=== PATIENT | female | born 1960 | race Caucasian/White ===

== ENCOUNTER 2024-10-06 09:17 | Outpatient (AMB) | payer BC, SELFPAY ==
--- NOTE | 2024-10-06 09:38 | AM.OFFWIN_ITS ---
Intake Vital Signs 3 10/06/24 09:41 Height 5 ft 7 in Weight 219 lb BMI 34.3 BP 118/70 Blood Pressure Location Lt brachial Position Sitting Respiration 15 Pulse 68 Pulse Source Pulse Oximeter Temp 98.2 F Temp Source Oral Pulse Oximetry (%) 97 Oxygen Delivery Method Room Air Intake Visit Reasons: EP ? Poison eye on RT side of face and chest area Intake Note: Pt is here today ?poison catrachita Rt eye, face and chest area x3 days ago Allergies sulfa Adverse Reaction (Uncoded 10/06/24 09:45) rash Medication List - Last Reconciled 10/06/24 by Lilia Parks, [employer]- montelukast 10 mg PO DAILY HPI HPI Comments 2 History of Present Illness0 Details History of Present Illness - The patient is a 64-year-old female pr esenting with concern for poison catrachita exposure. - Contact occurred Tuesday or Tuesday, re sulting in itching and a rash. - The rash has worsened, appearing on he r face and L shoulder and chest, characterized by oozing. - She applied an bouq-yys-fyogile remedy for itching, with limited relief. - Patient reports a significant reaction not experienced since adolescence. Review of Systems - Dermatologic: Reports itching and oozi ng rash on face and shoulder. - No other systemic symptoms were discus sed. Physical Exam General: Well developed, well nourished, in no acute distress. Appears stated age. Discussion Notes I reviewed with the patient the diagnosis of contact dermatitis due to poison catrachita exposure. We discussed immediate management strategies, focusing on easing symptoms and reducing further exposure to the oil causing the reaction. I recommended the use of Tecnu products, including a body wash for use during showers, noting its benefits for removing oil. I advised on the benefits of Tecnu?s drying spray, which was noted to be more effective than calamine lotion, and confirmed this could be safely applied to the face. We also covered plans to initiate a tapering course of oral steroids, detailing the importance of administration with food to mitigate gastrointestinal side effects. I emphasized the necessity of adhering to a 10-day tapering plan to manage inflammation effectively. We also discussed supplementation with a topical steroid cream, emphasizing facial application to prevent involvement of the eyes. Apmf-iuj-zoixgva antihistamines such as Benadryl or Zyrtec were mentioned as adjunctive treatments to reduce itching. I stressed the importance of environmental modifications to prevent spreading, advising careful management of personal items and hygiene practices, and instructed on preventing spread through self-inoculation. We discussed follow-up care if symptoms did not improve or worsened. Assessment and Plan 1. Contact Dermatitis due to Poison Catrachita Exposure - Use Tecnu products, including body was h and drying spray, safe for facial use. - Start a 10-day tapering steroid course , ensure to take with food. - Apply topical steroid cream on affecte d areas, especially on the face. - Consider Benadryl or Zyrtec for itchin g. - Advise on hygiene to prevent spread an d exposure. - Follow-up if no improvement is noted. Patient Instructions - Use Tecnu body wash and spray as direc rayna, including on the face. - Take steroid tablets with food, starti ng today, with 5 tablets each morning. - Apply topical steroid cream sparingly on the rash, especially on the face but avoiding the eyes. - You may take Benadryl or Zyrtec for it iraj. - Do not share towels, and wash bedding regularly to prevent spreading. - Follow these instructions and return i f symptoms worsen or do not improve. Consent Patient was informed and verbally consented to the use of an ambient scribe for clinic note documentation during this visit. Physical Exam Vital Signs: Last Vital Signs Temp 98.2 F 10/06/24 09:41 Pulse 68 10/06/24 09:41 Resp 15 10/06/24 09:41 BP 118/70 10/06/24 09:41 Pulse Ox 97 10/06/24 09:41 Oxygen Delivery Method Room Air 10/06/24 09:41 BMI result Body Mass Index 34.3 Assessment & Plan Assessment & Plan (1) Contact dermatitis due to poison catrachita: Code(s): L23.7 - Allergic contact dermatitis due to plants, except food Plan . Medications: New 2 triamcinolone acetonide 0.1% 1 appl topical BID 15 grams 2RF prednisone 5 tabs x 2 days, 4 tabs x 2 days, 3 tabs x 2 days, 2 tabs x 2 days, 1 tab x 2 days and then STOP. 10 mg PO DIRECTED 10 days 30 tabs 0RF Patient Instructions: - Use Tecnu body wash and spray as directed, including on the face. - Take steroid tablets with food, starting today, with 5 tablets each morning. - Apply topical steroid cream sparingly on the rash, especially on the face but avoiding the eyes. - You may take Benadryl or Zyrtec for itching. - Do not share towels, and wash bedding regularly to prevent spreading. - Follow these instructions and return if symptoms worsen or do not improve. - could also cover leaking areas with Tegaderm to prevent spread Coding Level of Care Code Est Pt Level 3 (34901) Diagnoses Contact dermatitis due to poison catrachita L23.7
[2024-10-06 09:41] VITALS: BP 118/70; PULSE 68; RESP 15; TEMP 36.8; O2SAT 97; BMI 34.3
== END 2024-10-06 09:58 | disposition home or self-care (01) ==
PROVIDERS: Visit Provider Nurse Practitioner Family
DX: L23.7 Allergic contact dermatitis due to plants, except food (principal)